=== PATIENT | female | born 1950 | race Caucasian/White ===

== ENCOUNTER 2017-01-23 13:26 | Emergency (ER) | payer BC ==
--- NOTE | 2017-01-23 13:47 | EDM.PDOC ---
ED HPI GENERAL MEDICAL PROBLEM - General Chief Complaint: Cardiovascular Problem Stated Complaint: CHEST PAIN Time Seen by Provider: 01/23/17 13:30 Source of Information: Reports: Patient, Other (Clinic ekg and messaging) History Limitations: Reports: No Limitations - History of Present Illness INITIAL COMMENTS - FREE TEXT/NARRATIVE: Mony awoke with sharp stabbing chest pain overlying the upper L breast this am, sxs lasting less than a minute. There was no perceived SOB, diaphoresis , nausea, back pain or palpitations. She got up and ready for the day, but has felt sluggish ever since, without relapse of chest sxs. She has had chest pain in the remote past due to fibromyalgia, medical work up including GXT and angiogram about 6 years ago, all negative. She was initially seen at the Clinic , and sent over to [facility] ED for evaluation. - Related Data Allergies Allergy/AdvReac Type Severity Reaction Status Date / Time ciprofloxacin [From Cipro] Allergy Unknown Cannot Verified 01/23/17 13:43 Remember Home Meds: Home Meds Hydrochlorothiazide [Hydrochlorothiazide] 25 mg PO DAILY 12/28/12 [History] Metoprolol Succinate [Toprol XL 100mg] 100 mg PO DAILY 12/28/12 [History] Valsartan [Diovan] 160 mg PO BID 12/28/12 [History] Wolcott-3 Fatty Acids [Wolcott-3] 1,000 mg PO DAILY 01/18/13 [History] Cholecalciferol (Vitamin D3) [Vitamin D3] 5,000 unit PO DAILY 01/23/17 [History] Krill/Om-3/DHA/EPA/Phospho/Ast [Krill Oil 1,000 mg Softgel] 1,000 mg DAILY 01/23 [History] Sulfamethoxazole/Trimethoprim [Bactrim Ds Tablet] 1 each PO BID 01/23/17 [ History] Past Medical History Cardiovascular History: Reports: Hypertension Musculoskeletal History: Reports: Fibromyalgia Social & Family History - Alcohol Use Days Per Week of Alcohol Use: 0 - Recreational Drug Use Recreational Drug Use: No ED ROS GENERAL - Review of Systems Review Of Systems: See Below Constitutional: Reports: Malaise HEENT: Reports: No Symptoms Respiratory: Reports: No Symptoms Cardiovascular: Reports: Chest Pain Endocrine: Reports: No Symptoms GI/Abdominal: Reports: No Symptoms : Reports: No Symptoms, Other (on meds for UTI) Musculoskeletal: Reports: Muscle Pain, Other (anterior chest pains L>R) Skin: Reports: No Symptoms Neurological: Reports: No Symptoms Psychiatric: Reports: No Symptoms Hematologic/Lymphatic: Reports: No Symptoms Immunologic: Reports: No Symptoms ED EXAM, GENERAL - Physical Exam Exam: See Below Exam Limited By: No Limitations General Appearance: Alert, WD/WN, No Apparent Distress Throat/Mouth: Normal Inspection, Normal Oropharynx Head: Normocephalic Neck: Normal Inspection, Supple, Non-Tender, Full Range of Motion Respiratory/Chest: No Respiratory Distress, Lungs Clear, Normal Breath Sounds, No Accessory Muscle Use, Other (anterior chest tenderness L>R) Cardiovascular: Regular Rate, Rhythm, No Murmur GI/Abdominal: Normal Bowel Sounds, Soft, Non-Tender, No Organomegaly, No Distention, No Mass Rectal (Female) Exam: Deferred Back Exam: Normal Inspection Extremities: Normal Inspection Neurological: Alert, Oriented, CN II-XII Intact, Normal Cognition, Normal Gait, No Motor/Sensory Deficits Psychiatric: Normal Affect, Normal Mood Skin Exam: Warm, Dry Lymphatic: No Adenopathy Course - Vital Signs Text/Narrative:: Mony remained stable at the [facility] ED. Screening labwork and chest x ray were baseline. Point tenderness of the chest wall remained unchanged. Last Recorded V/S: Last Vital Signs Temp 36.5 C 01/23/17 13:26 Pulse 82 01/23/17 13:26 Resp 18 01/23/17 13:26 BP 197/94 H 01/23/17 13:26 Pulse Ox 99 01/23/17 13:26 - Orders/Labs/Meds Orders: Active Orders 24 hr Category Date Time Status Chest 1V Frontal [CR] Stat Exams 01/23/17 13:40 Taken Labs: Laboratory Tests 01/23/17 01/23/17 01/23/17 Range/Units 13:35 13:35 13:35 WBC 6.4 (4.5-12.0) X10-3/uL RBC 5.03 (3.23-5.20) x10(6)uL Hgb 15.0 (11.5-15.5) g/dL Hct 43.4 (30.0-51.3) % MCV 86.2 (80-96) fL MCH 29.8 (27.7-33.6) pg MCHC 34.6 (32.2-35.4) g/dL RDW 14.4 (11.5-15.5) % Plt Count 209 (125-369) X10(3)uL MPV 8.4 (7.4-10.4) fL Neut % (Auto) 59.5 (46-82) % Lymph % (Auto) 32.1 (13-37) % [place] % (Auto) 5.4 (4-12) % Eos % (Auto) 2 (1.0-5.0) % Baso % (Auto) 1 (0-2) % Neut # (Auto) 3.9 (1.6-8.3) # Lymph # (Auto) 2.1 (0.6-5.0) # [place] # (Auto) 0.3 (0.0-1.3) # Eos # (Auto) 0.1 (0.0-0.8) # Baso # (Auto) 0.0 (0.0-0.2) # POC Sodium 142 (135-145) mmol/L POC Potassium 3.4 L (3.5-5.3) mmol/L POC Chloride 99 L (100-110) mmol/L POC Total CO2 29.0 (23.0-30.0) mmol/L POC BUN 15 (7-18) mg/dL POC Creatinine 1.2 (0.6-1.3) mg/dL POC Glucose 127 H (80-116) mg/dL Troponin I < 0.01 L (0.02-0.06) NG/ML Meds: Medications Discontinued Medications Generic Name Dose Route Start Last Admin Trade Name Treq PRN Reason Stop Dose Admin Aspirin 324 mg 01/23/17 14:06 01/23/17 13:30 Aspirin PO 01/23/17 14:07 324 mg ONETIME ONE Administration Departure - Departure Time of Disposition: 14:42 Disposition: Home, Self-Care 01 Condition: Good Clinical Impression: Atypical chest pain, Fibromyalgia Referrals: Julia Hairston NP [Primary Care Provider] - Forms: ED Department Discharge - Problem List & Annotations (1) Atypical chest pain SNOMED Code(s): 631843320 Code(s): R07.89 - OTHER CHEST PAIN Status: Acute Current Visit: Yes Annotation/Comment:: Atypical chest pain, likely secondary to fibromyalgia. Continue sxs cares and NSAIDs as needed. No restrictions. - Problem List Review Problem List Initiated/Reviewed/Updated: Yes - My Orders Last 24 Hours: My Active Orders 01/23/17 13:40 Chest 1V Frontal [CR] Stat - Assessment/Plan Last 24 Hours: My Active Orders 01/23/17 13:40 Chest 1V Frontal [CR] Stat Plan: Follow up with PCP as needed.
[2017-01-23] MEDS ORDERED: Aspirin 81 MG Tab.Chew PO ONE (14:06)
--- NOTE | 2017-01-23 14:48 | CR ---
INDICATION: Atypical chest pain. CHEST: An AP portable upright view of the chest, 01/23/2017, was compared with 12/29/2012 and 01/08/2010, revealing overlying EKG leads. The heart did not appear enlarged. The aorta is calcified minimally in the arch area with mild tortuosity. A definite active infiltrate or effusion was not identified. IMPRESSION: No acute process. MTDD
[2017-01-23 15:20] VITALS: BP 165/78
== END 2017-01-23 14:56 | disposition home or self-care (01) ==
LOC: FB.ED 13:26
DX: R07.89 Other chest pain (principal); M79.7 Fibromyalgia; I10 Essential (primary) hypertension; Z88.1 Allergy status to other antibiotic agents; Z79.899 Other long term (current) drug therapy
CPT/HCPCS: 36415; 71010; 80047; 84484; 85025; 99284; A9270

== ENCOUNTER 2018-09-30 21:13 | Emergency (ER) | payer BC, MEDICARE, OTHER ==
[~2018-09-30 21:13] MED LIST: Aspirin 81 MG Tab.Chew PO ONE
--- NOTE | 2018-09-30 21:50 | EDM.PDOC ---
ED HPI GENERAL MEDICAL PROBLEM - General Stated Complaint: CHEST PAIN Time Seen by Provider: 09/30/18 21:35 Source of Information: Reports: Patient History Limitations: Reports: No Limitations - History of Present Illness INITIAL COMMENTS - FREE TEXT/NARRATIVE: 67-year-old female with onset of nasal congestion and again "cold symptoms" approximately 3 weeks ago. She reports that it seemed to again "settle in her chest" with cough and the cough has been hacking at times and has also been productive of yellow phlegm. She has had yellow discharge from her nose as well. Over the past few days, she has developed shortness of breath. That shortness of breath seem to be worse tonight. She does have chest pain but she states she always has chest pain and it varies between 3/10 to an 8-9/10 at times. It is reproducible with palpation and it is associated with her fibromyalgia. She has had some nausea but no vomiting. She currently rates the pain in her chest as a 4/10. Her primary complaint is the feelings of shortness of breath and the cough seems to come on with any deep breath or activity. She also feels tired. And the shortness of breath is what prompted her coming to the emergency department tonight. Her no other associated signs or symptoms. There are no other modifying factors. Onset: Other (3 weeks) Duration: Getting Worse Location: Reports: Chest Quality: Reports: Ache, Dull Severity: Moderate Improves with: Reports: Rest Worsens with: Reports: Breathing, Other (Activity), Movement Associated Symptoms: Reports: Chest Pain, Cough, Loss of Appetite, Nausea/ Vomiting (Mild nausea), Shortness of Breath Treatments STEWARD/STEWARDESS ROOM: Reports: Other (see below) (Nothing. She does take gabapentin for her fibromyalgia type pain.) - Related Data Allergies Allergy/AdvReac Type Severity Reaction Status Date / Time ciprofloxacin [From Cipro] Allergy Unknown Cannot Verified 01/23/17 13:43 Remember Home Meds: Home Meds Hydrochlorothiazide 25 mg PO DAILY 12/28/12 [History] Metoprolol Succinate [Toprol XL 100mg] 100 mg PO DAILY 12/28/12 [History] Valsartan [Diovan] 160 mg PO BID 12/28/12 [History] Matthews-3 Fatty Acids [Matthews-3] 1,000 mg PO DAILY 01/18/13 [History] Cholecalciferol (Vitamin D3) [Vitamin D3] 5,000 unit PO DAILY 01/23/17 [History] Krill/Om-3/DHA/EPA/Phospho/Ast [Krill Oil 1,000 mg Softgel] 1,000 mg DAILY 01/23 [History] Sulfamethoxazole/Trimethoprim [Bactrim Ds Tablet] 1 each PO BID 01/23/17 [ History] Albuterol Sulfate [Albuterol Sulfate Hfa] 2 - 4 puff IH Q4HR PRN #1 inhaler [Rx] Doxycycline Hyclate 100 mg PO BID 10 Days #20 tablet 09/30/18 [Rx] Inhaler, Assist Devices [Space Chamber Plus] 1 each MC ASDIRECTED #1 spacer [Rx] Potassium Chloride 20 meq PO BID 3 Days #6 tablet.er 09/30/18 [Rx] predniSONE [Prednisone] 50 mg PO QAM 5 Days #5 tablet 09/30/18 [Rx] Past Medical History Cardiovascular History: Reports: Hypertension Respiratory History: Reports: Sleep Apnea Other Respiratory History: uses CPAP Gastrointestinal History: Reports: GERD, Other (See Below) (duodenitis) Genitourinary History: Reports: UTI, Recurrent Musculoskeletal History: Reports: Fibromyalgia, Other (See Below) (Restless leg syndrome) Neurological History: Reports: Migraines Psychiatric History: Reports: Anxiety, Panic Attack Endocrine/Metabolic History: Reports: Obesity/BMI 30+, Vitamin D Deficiency - Infectious Disease History Infectious Disease History: Reports: Chicken Pox, Measles, Mumps, Scarlet Fever - Past Surgical History GI Surgical History: Reports: Cholecystectomy, Colonoscopy Social & Family History - Tobacco Use Smoking Status *Q: Never Smoker - Caffeine Use Caffeine Use: Reports: None - Alcohol Use Alcohol Use History: No - Living Situation & Occupation Living situation: Reports: (Here with her ) Occupation: Retired (Retired warehouse team member) ED ROS GENERAL - Review of Systems Review Of Systems: See Below Constitutional: Reports: Malaise, Fatigue HEENT: Reports: Other (Sinus congestion and nasal congestion with yellow discharge) Respiratory: Reports: Shortness of Breath, Wheezing (?), Cough Cardiovascular: Reports: Chest Pain GI/Abdominal: Reports: Nausea. Denies: Vomiting : Reports: No Symptoms Musculoskeletal: Reports: Other (Body aches) Skin: Reports: No Symptoms Neurological: Reports: No Symptoms Hematologic/Lymphatic: Reports: No Symptoms Immunologic: Reports: No Symptoms ED EXAM, GENERAL - Physical Exam Exam: See Below Exam Limited By: No Limitations General Appearance: Alert, WD/WN, Mild Distress Eye Exam: Bilateral Eye: EOMI, Normal Inspection, PERRL Ears: Normal External Exam Ear Exam: Bilateral Ear: Auricle Normal Nose: Nasal Swelling, Nasal Drainage (Nasal mucosal edema) Throat/Mouth: Normal Voice, No Airway Compromise, Other (Moist membranes) Head: Atraumatic, Normocephalic Neck: Normal Inspection, Supple, Non-Tender, Full Range of Motion Respiratory/Chest: Lungs Clear, Normal Breath Sounds, No Accessory Muscle Use, Other (Slightly increased respiratory rate.) Cardiovascular: Normal Peripheral Pulses, Regular Rate, Rhythm, No JVD Peripheral Pulses: 2+: Radial (L), Radial (R), Dorsalis Pedis (L), Dorsalis Pedis (R) GI/Abdominal: Normal Bowel Sounds, Soft, Non-Tender, No Mass Back Exam: Normal Inspection Extremities: Normal Inspection, Normal Range of Motion, Non-Tender, Normal Capillary Refill, No Pedal Edema Neurological: Alert, Oriented, CN II-XII Intact, Normal Cognition, No Motor/ Sensory Deficits Skin Exam: Warm, Dry, Intact, Normal Color, No Rash Course - Vital Signs Last Recorded V/S: Last Vital Signs Temp 36.7 C 09/30/18 21:15 Pulse 90 09/30/18 21:15 Resp 15 09/30/18 21:15 BP 157/92 H 09/30/18 21:15 Pulse Ox 98 09/30/18 21:15 - Orders/Labs/Meds Orders: Active Orders 24 hr Category Date Time Status EKG Documentation Completion [RC] ASDIRECTED Care 09/30/18 22:16 Active RT Aerosol Therapy [RC] ASDIRECTED Care 09/30/18 22:16 Active Chest 2V [CR] Stat Exams 09/30/18 22:15 Taken EKG 12 Lead [EK] Routine Ther 09/30/18 22:16 Ordered Labs: Laboratory Tests 09/30/18 09/30/18 09/30/18 Range/Units 21:30 21:30 21:30 WBC 7.3 (4.5-12.0) X10-3/uL RBC 4.52 (3.23-5.20) x10(6)uL Hgb 13.7 (11.5-15.5) g/dL Hct 40.3 (30.0-51.3) % MCV 89.1 (80-96) fL MCH 30.4 (27.7-33.6) pg MCHC 34.1 (32.2-35.4) g/dL RDW 14.1 (11.5-15.5) % Plt Count 226 (125-369) X10(3)uL MPV 8.4 (7.4-10.4) fL Neut % (Auto) 53.8 (46-82) % Lymph % (Auto) 39.2 H (13-37) % [place] % (Auto) 4.9 (4-12) % Eos % (Auto) 2 (1.0-5.0) % Baso % (Auto) 1 (0-2) % Neut # (Auto) 3.9 (1.6-8.3) # Lymph # (Auto) 2.9 (0.6-5.0) # [place] # (Auto) 0.4 (0.0-1.3) # Eos # (Auto) 0.1 (0.0-0.8) # Baso # (Auto) 0.0 (0.0-0.2) # D-Dimer, Quantitative 0.33 (0.0-0.59) mg/LFEU Sodium 142 (135-145) mmol/L Potassium 3.0 L (3.5-5.3) mmol/L Chloride 102 (100-110) mmol/L Carbon Dioxide 30 (21-32) mmol/L BUN 21 H (7-18) mg/dL Creatinine 1.1 H (0.55-1.02) mg/dL Est Cr Clr Drug Dosing TNP Estimated GFR (MDRD) 50 L (>60) BUN/Creatinine Ratio 19.1 (9-20) Glucose 167 H (80-116) mg/dL Calcium 9.2 (8.6-10.2) mg/dL Total Bilirubin 0.7 (0.1-1.3) mg/dL AST 13 (5-25) IU/L ALT 39 H (12-36) U/L Alkaline Phosphatase 91 (56-112) IU/L Troponin I (<0.017-0.056) ng/mL Total Protein 7.7 (6.0-8.0) g/dL Albumin 3.8 (3.2-4.6) g/dL Globulin 3.9 g/dL Albumin/Globulin Ratio 1.0 /18/ Range/Units 21:30 WBC (4.5-12.0) X10-3/uL RBC (3.23-5.20) x10(6)uL Hgb (11.5-15.5) g/dL Hct (30.0-51.3) % MCV (80-96) fL MCH (27.7-33.6) pg MCHC (32.2-35.4) g/dL RDW (11.5-15.5) % Plt Count (125-369) X10(3)uL MPV (7.4-10.4) fL Neut % (Auto) (46-82) % Lymph % (Auto) (13-37) % [place] % (Auto) (4-12) % Eos % (Auto) (1.0-5.0) % Baso % (Auto) (0-2) % Neut # (Auto) (1.6-8.3) # Lymph # (Auto) (0.6-5.0) # [place] # (Auto) (0.0-1.3) # Eos # (Auto) (0.0-0.8) # Baso # (Auto) (0.0-0.2) # D-Dimer, Quantitative (0.0-0.59) mg/LFEU Sodium (135-145) mmol/L Potassium (3.5-5.3) mmol/L Chloride (100-110) mmol/L Carbon Dioxide (21-32) mmol/L BUN (7-18) mg/dL Creatinine (0.55-1.02) mg/dL Est Cr Clr Drug Dosing Estimated GFR (MDRD) (>60) BUN/Creatinine Ratio (9-20) Glucose (80-116) mg/dL Calcium (8.6-10.2) mg/dL Total Bilirubin (0.1-1.3) mg/dL AST (5-25) IU/L ALT (12-36) U/L Alkaline Phosphatase (56-112) IU/L Troponin I < 0.017 L (<0.017-0.056) ng/mL Total Protein (6.0-8.0) g/dL Albumin (3.2-4.6) g/dL Globulin g/dL Albumin/Globulin Ratio Meds: Medications Discontinued Medications Generic Name Dose Route Start Last Admin Trade Name Freq PRN Reason Stop Dose Admin Albuterol/Ipratropium 3 ml 09/30/18 22:15 09/30/18 23:04 Duoneb 3.0-0.5 Mg/3 Ml NEB 09/30/18 22:16 3 ml ONETIME ONE Administration Aspirin 324 mg 09/30/18 21:09 Aspirin PO 09/30/18 21:10 ONETIME ONE Potassium Chloride 40 meq 09/30/18 23:01 09/30/18 23:08 Potassium Chloride Solution PO 09/30/18 23:02 40 meq ONETIME ONE Administration Prednisone 60 mg 09/30/18 22:15 09/30/18 23:08 Prednisone PO 09/30/18 22:16 60 mg ONETIME ONE Administration - Radiology Interpretation Free Text/Narrative:: Chest x-ray PA and lateral shows a left lingular infiltrate. - Re-Assessments/Exams Free Text/Narrative Re-Assessment/Exam: 09/30/18 23:45: After the DuoNeb, the patient feels much improved. Her shortness of breath has decreased and she feels that air is moving much better. Her chest x-ray shows what appears to be a left lingular infiltrate. Her blood tests were reassuring except for a low potassium (since she is on hydrochlorothiazide). I will treat the patient was doxycycline 100 mg twice daily for 10 days, prednisone 50 mg daily for the next 5 days, and albuterol inhaler with a spacer and I will also place her on potassium 40 mEq daily for the next 3 days. She is to follow-up with her primary doctor this next week for recheck. Departure - Departure Time of Disposition: 23:55 Disposition: Home, Self-Care 01 Condition: Good (Improved) Clinical Impression: Hypokalemia Pneumonia involving left lung Qualifiers: Pneumonia type: due to unspecified organism Lung location: upper lobe of lung Qualified Code(s): J18.1 - Lobar pneumonia, unspecified organism Reactive airway disease Qualifiers: Asthma severity: moderate Asthma persistence: persistent Asthma complication type: uncomplicated Qualified Code(s): J45.40 - Moderate persistent asthma, uncomplicated - Discharge Information Prescriptions: Albuterol Sulfate [Albuterol Sulfate Hfa] 2 - 4 puff IH Q4HR PRN #1 inhaler PRN Reason: Cough and shortness of breath Doxycycline Hyclate 100 mg PO BID 10 Days #20 tablet Inhaler, Assist Devices [Space Chamber Plus] 1 each MC ASDIRECTED #1 spacer Potassium Chloride 20 meq PO BID 3 Days #6 tablet.er predniSONE [Prednisone] 50 mg PO QAM 5 Days #5 tablet Instructions: How to Use a Metered Dose Inhaler, Community-Acquired Pneumonia, Adult, [id number], Bronchospasm, Adult, [id number], Hypokalemia, Cough, Adult, [id number] Referrals: PCP,None [Primary Care Provider] - Additional Instructions: You appear to have a pneumonia in your left lung. You also have reactive airway disease. Your blood tests were reassuringly normal except for a slightly low potassium. Your EKG showed no acute problem and was unchanged from your previous EKG. You should increase her fluid intake. Medication as prescribed ( doxycycline, prednisone, potassium chloride, albuterol inhaler, a spacer for the albuterol inhaler). Follow-up with your primary doctor this next week for recheck and specifically for a recheck of your potassium. Back to the emergency department for worse breathing, unrelenting vomiting, worsening pain or any other concerning sign or symptom. - My Orders Last 24 Hours: My Active Orders 09/30/18 22:15 Chest 2V [CR] Stat 09/30/18 22:16 EKG Documentation Completion [RC] ASDIRECTED RT Aerosol Therapy [RC] ASDIRECTED EKG 12 Lead [EK] Routine - Assessment/Plan Last 24 Hours: My Active Orders 09/30/18 22:15 Chest 2V [CR] Stat 09/30/18 22:16 EKG Documentation Completion [RC] ASDIRECTED RT Aerosol Therapy [RC] ASDIRECTED EKG 12 Lead [EK] Routine
[2018-09-30 22:06] VITALS: BP 157/92; PULSE 90
[2018-09-30] MEDS ORDERED: Albuterol/Ipratropium 3.0-0.5 MG/3 ML Neb Soln NEB ONE (22:15)
[2018-09-30] MEDS ORDERED: predniSONE 20 MG Tab PO ONE (22:15)
[2018-09-30] MEDS ORDERED: Potassium Chloride 10% 20 MEQ/15 ML Soln 15 ML UD Cup PO ONE (23:01)
[2018-09-30] MEDS ORDERED: Doxycycline 100 MG Tab PO ONE (23:51)
--- NOTE | 2018-10-01 11:09 | CR ---
INDICATION: Cough with shortness of breath. CHEST: PA and lateral views of the chest were obtained 09/30/18 and compared with 01/23/17 and 12/29/25. The heart is normal in size and shape. The aorta is somewhat tortuous with calcification in the arch. Minimal degenerative changes are noted in the mid thoracic spine. Pulmonary markings appear similar to the previous examinations without a definite active infiltrate or effusion identified. However, there is mild to moderate bronchial wall cuffing at the lung bases, which may be on the basis of active peribronchial disease and/or fibrosis and should be correlated clinically. Overlying EKG leads are noted. IMPRESSION: 1. Bronchial wall cuffing could represent acute disease and should be correlated clinically. 2. ASD aorta. MTDD
== END 2018-10-01 00:08 | disposition home or self-care (01) ==
LOC: FB.ED 21:13
DX: J18.1 Lobar pneumonia, unspecified organism (principal); J45.40 Moderate persistent asthma, uncomplicated; E87.6 Hypokalemia; I10 Essential (primary) hypertension; E66.9 Obesity, unspecified; Z68.31 Body mass index [BMI] 31.0-31.9, adult; Z88.1 Allergy status to other antibiotic agents; Z79.899 Other long term (current) drug therapy
CPT/HCPCS: 36415; 71046; 80053; 84484; 85025; 85379; 93005; 94640; 99285; A9270; 99284; J7620-GY